=== PATIENT | female | born 1965 ===

== ENCOUNTER 2018-09-11 12:50 | Emergency (ER) | payer OTHER ==
[~2018-09-11] VITALS: Ht 154.9 cm; Wt 84.4 kg
[~2018-09-11 12:50] MED LIST: CLONAZEPAM0.5 MG PO; COZAAR50 MG; LEVSIN0.125 MG PO; LOSARTAN-HCTZ1 EAC1; METFORMIN HCL500 MG; PNEU16DI2; PROTONIX20 MG PO; PROTONIX40 MG PO; ZANTAC300 MG PO
[2018-09-11] MEDS ORDERED: METOPROLOL SUCC25 MG PO (13:18)
[2018-09-11] MEDS ORDERED: MAXALT10 MG PO (13:19)
[2018-09-11] MEDS ORDERED: KETO10TA2 PO (21:16)
[2018-09-11] MEDS ORDERED: MAXALT5 MG PO (21:16)
== END 2018-09-11 22:01 | disposition home or self-care (01) ==
LOC: ER 12:50
DX: G43.909 Migraine, unspecified, not intractable, without status migrainosus (principal); K29.70 Gastritis, unspecified, without bleeding

== ENCOUNTER 2019-10-19 01:04 | Emergency (ER) | payer OTHER ==
[~2019-10-19] VITALS: Ht 154.9 cm; Wt 81.8 kg
[~2019-10-19 01:04] MED LIST changes: +KETO10TA2 PO; +MAXALT10 MG PO; +MAXALT5 MG PO; +METOPROLOL SUCC25 MG PO
== END 2019-10-19 11:30 | disposition home or self-care (01) ==
LOC: ER 01:04
DX: R20.2 Paresthesia of skin (principal)

== ENCOUNTER 2020-03-17 08:53 | Emergency (ER) | payer OTHER ==
[~2020-03-17] VITALS: Ht 154.9 cm; Wt 89.8 kg
[2020-03-17] MEDS ORDERED: HYDROCHLOROTHIA25 MG (09:24)
== END 2020-03-17 16:15 | disposition home or self-care (01) ==
LOC: ER 08:53 → CPU-OBS 08:54 → ER 08:54
DX: R07.89 Other chest pain (principal); R10.13 Epigastric pain
CPT/HCPCS: G0378; G0379; 93005